=== PATIENT | female | born 1955 | race Caucasian/White ===

== ENCOUNTER 2019-12-10 18:53 | Inpatient (IN) | payer BC, OTHER ==
[~2019-12-10] VITALS: Ht 170.2 cm; Wt 92.5 kg
--- NOTE | ~2019-12-10 | O ---
[facility] [place] [address] OPERATIVE REPORT Name: BRENDEN NICK Room #: 439-P ADM IN M.R.#: [id number] Admission: 12/10/19 Attend Phys: Pasha Guy MD Discharge: Date of : 59 Report #: [id number] THIS REPORT FOR: cc: ANGELIC - No family physician/PCP ANGELIC - No family physician/PCP Natanael Cardozo DPM ~ CC: ANGELIC physician/PCP Pasha Guy DATE OF SERVICE: 12/12/2019 PREOPERATIVE DIAGNOSIS: Left diabetic foot ulcer with osteomyelitis. POSTOPERATIVE DIAGNOSIS: Left diabetic foot ulcer with osteomyelitis. PROCEDURE: Left partial first ray resection. ANESTHESIA: General with a local block consisting of 15 mL of 0.5% Marcaine. TOURNIQUET: Thigh. DESCRIPTION OF PROCEDURE: The patient was transported to operating room and placed on the operating table in supine position. General anesthesia was administered. The left lower extremity was prepped and draped in the usual sterile manner. Attention was directed to the left foot after a local block was given and a racquet-type incision was made excising off first the hallux completely and dissecting free the first metatarsal, which was noted to have a significant loss of bone in the distal medial aspect. It was unusual to see not much purulence in the area, but significant scar tissue and some inflammatory tissue in the area. The sesamoid apparatus was also present in the first metatarsal and right adjacent to the wound sites, we removed the sesamoid apparatus as per usual and with any tissue that was compromised or nonviable. The wound was then copiously flushed with normal saline and Bacitracin and the wound tissue sent out before that was sent for aerobic, anaerobic, and fungal. I remodeled the first metatarsal nicely and then we closed the wound with 2-0 nylon using simple suture and horizontal suture technique. The wound was then dressed with Xeroform, fluffs, Kerlix and outer Ross bandage. The patient tolerated the procedure well and left the operating room with vital signs intact and vascular status intact. [address] [address] OPERATIVE REPORT Name: SALOMON ELIZABETHBRENDEN Room #: 439-P ADM IN M.R.#: [id number] Admission: 12/10/19 Attend Phys: Pasha Guy MD Discharge: Date of : 59 Report #: [id number] The 95% of the wound was healed; but still some slight opening was present. The patient will need to be protected quite a bit, with a watch closely to make sure the infection is not tracking more proximal or more medial. By: 1319 1352 Natanael Cardozo, RACHAEL /nt
[2019-12-10 18:58] VITALS: BP 174/85
[2019-12-10 19:35] LABS: ABSOLUTE NEUTROPHILS 11.7 thou/uL (1.4-8.2); BASOPHILS 0.4 % (0.0-2.0); EOSINOPHILS 0.2 % (0.0-3.0); HEMATOCRIT 39.7 % (37.0-47.0); HEMOGLOBIN 12.9 gm/dL (12.0-15.0); LYMPHOCYTES 10.4 % (24.0-44.0); MCH 27.5 pg (26.0-34.0); MCHC 32.6 g/dL (28.0-37.0); MCV 84.5 fL (80.0-100.0); MONOCYTES 5.3 % (1.0-8.0); PLATELET COUNT 379 thou/uL (150-400); POLYS 83.7 % (36.0-66.0); RBC 4.69 mil/uL (4.20-5.00)
[2019-12-10 19:43] LABS: CALCIUM 8.6 mg/dL (8.5-10.1); POTASSIUM 3.8 mmol/L (3.5-5.1)
[2019-12-10 20:54] VITALS: BP 174/85
--- NOTE | 2019-12-10 20:58 | NUR ---
ATTEMPTED TO CALL REPORT TO RECEIVING NURSE, STATED SHE HAS A BUNCH OF PAPERS TO LOOK THROUGH TO BE ABLE TO READ THE HAND OFF TOOL AND WILL HAVE TO CALL ME BACK
--- NOTE | 2019-12-10 21:04 | NUR ---
INPATIENT NURSE CALLED BACK TO TELL ME TO FAX THE HAND OFF TOOL TO [facility] BECAUSE [facility] [employer] IS BUSY. NURSE REFUSES TO TAKE ANY INFORMATION ABOUT PT UNTIL SHE HAS THE HAND OFF TOOL IN FRONT OF HER
--- NOTE | 2019-12-10 21:31 | NUR ---
JEREMY GAVE INSTRUCTION TO HOLD OFF ON SENDING PATIENT TO THE FLOOR D/T PENDING INSURANCE ISSUES, PT MAY WANT TO TRANSFER TO DIFFERENT HOSPITAL
[2019-12-10 22:15] VITALS: BP 147/82
--- NOTE | 2019-12-11 03:08 | NUR ---
ARRIVED ON UNIT AT 2215 VIA CART FROM ED ACCOMPAINED BY ED PERSONEL. PATIENT ALERT AND ORIENTED X4. PATIENT ANXIOUS ABOUT BEING HERE BECAUSE OF INSURANCE COVERAGE. PATIENT C/O PAIN OF 1 IN L FOOT WOUND. PICTURES TAKEN AND PUT IN CHART. PATIENT NOT A FALL RISK. IV IN R HAND PATENT WITH FLUIDS INFUSING.SLEPT OFF AND ON DURING NIGHT.
[2019-12-11 07:59] LABS: HEMATOCRIT 36.4 % (37.0-47.0); HEMOGLOBIN 11.9 gm/dL (12.0-15.0); MCH 27.6 pg (26.0-34.0); MCHC 32.7 g/dL (28.0-37.0); MCV 84.4 fL (80.0-100.0); RBC 4.31 mil/uL (4.20-5.00); RDW 13.9 % (10.5-14.5); WBC 9.4 thou/uL (4.0-11.0)
[2019-12-11 08:08] LABS: CALCIUM 8.4 mg/dL (8.5-10.1); CREATININE 0.8 mg/dL (0.6-1.0); POTASSIUM 3.8 mmol/L (3.5-5.1)
--- NOTE | 2019-12-11 08:26 | NUR ---
PER DOCUMENTATION IN H &P PT IS WORRIED HER INSURANCE IS OUT OF NETWORK WITH THIS HOSPITAL. CM CONTACTED MELE AT [facility] AT 0825 AND LEFT A VOICEMAIL REQUESTING HER TO CALL BACK ELMIRA IN REGARDS TO IF PATIENT IS IN NETWORK OR OUT OF NETWORK.
[2019-12-11 08:31] VITALS: BP 104/61
--- NOTE | 2019-12-11 10:04 | NUR ---
ASSESSMENT: CM REVIEWED CHART AND SPOKE WITH PATIENT. PT WAS ADMITTED DUE TO HAVING A WOUND ON HER LEFT FOOT THAT IS POSITIVE FOR OSTEO. PT REPORTS THAT SHE HAS NO PAST HX OF SEEING A MEDICAL DOCTOR SINCE AND SHE HAS JUST PRAYED FOR HEALING. PT REPORTS THAT SHE HAS NO PCP. PT REPORTS SHE LIVES IN A HOUSE WITH HER AND HAS BEEN FULLY INDEPENDENT WITH ADLS AND AMBULATION. PT HAS NO DME OR THE NEED FOR IT. PT REPORTS SHE HAS STEPS AT HOME BUT HAS BEEN INDEPENDENT HER WHOLE LIFE. PT IS CONCERNED HER INSURANCE IS OUT OF NETWORK AND WANTS TO TRANSFER TO ANOTHER HOSPITAL IF THIS IS THE CASE. CM REASSURED HER THAT CM HAS NOT BEEN INFORMED OF THAT AT THIS TIME AND VM HAS BEEN LEFT WITH OUR PRE-CERT DEPT IN ATTEMPTS TO VERIFY AND CM WILL NOTIFY HER SOON WE KNOW. CM ATTEMPTED TO CALL [employer] [place] BUT [facility] SO AWAITING CALL BACK FROM PRE-CERT AT THIS TIME. CM ASKED IF PATIENT NEEDED A LIST OF PCP AND SHE STATED SHE COULD CALL THE NUMBER ON HER CARD FOR IN-NETWORK PROVIDERS. CM ALSO PROVIDED HER WITH A LIST OF [facility] PCP. CM WILL CONTINUE TO FOLLOW TO ASSIST NEEDED.
--- NOTE | 2019-12-11 11:14 | NUR ---
PT A&OX4 VSS, IV PATENT WITH FLUIDS RUNNING/ANTIBIOTICS, CALLS APPROPRIATE WHEN HELP NEEDED, CALL LIGHT IN REACH, WILL CONTINUE TO MONITOR.
[2019-12-11 17:15] VITALS: BP 120/56
[2019-12-11 20:45] VITALS: BP 139/87
--- NOTE | 2019-12-12 03:47 | NUR ---
PT DENOED PAIN SO FAR.DR ANDRADE HERE TO SEE PATIENT.PT'S FOOT SWABBED AND SENT DOWN TO THE LAB.PT STATED THAT HER IV WAS HURTING WHENEVER SHE MOVES HER ARM,NEW IV STARTED TO HER RFA.PT CONT ON HER IVF AND IV ABX.PT SLEEPING ON HER BED AT THIS TIME.CALL LIGHT WITHIN REACH.
[2019-12-12 05:30] VITALS: BP 122/63
[2019-12-12 08:22] VITALS: BP 122/62
--- NOTE | 2019-12-12 11:02 | HC ---
[facility] [place] [address] CONSULTATION Name: BRENDEN NICK Room #: 439-P ADM IN M.R.#: [id number] Admission: 12/10/19 Attend Phys: Pasha Guy MD Discharge: Date of : 59 Report #: [id number] THIS REPORT FOR: cc: ANGELIC - No family physician/PCP ANGELIC - No family physician/PCP Julio César Jurado MD ~ CC: [facility]/PCP Pasha Guy DATE OF SERVICE: 12/11/2019 WOUND CARE CONSULTATION PERSONAL PHYSICIAN: None. CHIEF COMPLAINT: Left toe ulcer with suspected osteomyelitis. HISTORY OF PRESENT ILLNESS: This is a 64-year-old white female with no previous medical history who came to the Emergency Department for complaints of possible infection in her left great toe secondary to increasing pain, swelling and drainage over the past several days. The patient states she had an ulcer in the left great toe for several months. 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 The patient denies fevers or chills. The patient states that she has minimal pain. The patient denies any other associated concerns at this time. The patient states she has never had any other wounds that she could not heal on her own. PAST MEDICAL HISTORY: Significant for possibly new onset diabetes after she was found to have a blood glucose in the Emergency Department of 203. The patient otherwise has no other significant past medical history. CURRENT MEDICATIONS: None. DRUG ALLERGIES: None. SOCIAL HISTORY: The patient does not smoke or drink alcohol. FAMILY HISTORY: Not pertinent to current medical condition. REVIEW OF SYSTEMS: CONSTITUTIONAL: The patient denies fevers or chills. NEUROLOGIC: The patient denies numbness, tingling or weakness in arms or legs. EYES: No complaints. ENT: No complaints. CARDIAC: The patient denies chest pain, palpitations, peripheral edema. [facility] [address] [place] [address] CONSULTATION Name: BRENDEN NICK Room #: 439-P [facility].#: [id number] Admission: 12/10/19 Attend Phys: Pasha Guy MD Discharge: Date of : 59 Report #: [id number] RESPIRATORY: The patient denies shortness of breath, cough or wheezes. GASTROINTESTINAL: The patient denies nausea, vomiting or abdominal pain. GENITOURINARY: The patient denies urgency or frequency. MUSCULOSKELETAL: No complaints. SKIN: There is a chronic ulcer on the left great first metatarsal head. PHYSICAL EXAMINATION: VITAL SIGNS: Temperature 36.6, pulse 63, respirations 16, BP 104/61. GENERAL: This is an alert and oriented x 3, pleasant white female who is in absolutely no distress. HEENT: Normocephalic, atraumatic. Mucous membranes are moist. Pupils are round. Sclerae are white. NECK: Without JVD. LUNGS: Clear. HEART: Regular. ABDOMEN: Soft, nontender. EXTREMITIES: The patient moves all extremities without difficulty. Evaluation of left lower extremity reveals a 2+ dorsalis pedis pulse, trace edema and on the plantar aspect of the left foot over the area of the first metatarsal head is a chronic ulcer with palpable bone at the base, the wound is a mix of approximately 90% granulation tissue and 10% yellow slough. Periwound is mildly macerated. There is no significant undermining or tunneling. Moderate amount of serosanguineous drainage is noted without significant odor. No other associated ulcerations are noted. Right foot is without open ulcerations. NEUROLOGIC: Cranial nerves 2-12 are grossly intact. Motor and sensory are grossly intact. LABORATORY VALUES: White count 9.4, hemoglobin 11.9. Sed rate 65. BUN 10, creatinine 0.8. C-reactive protein 213.12. IMAGING: X-ray of the left foot shows erosive change of the first metatarsal head consistent with osteomyelitis. WOUND CARE COURSE: I spoke at length with the patient and stated at this time an MRI has been ordered to evaluate for osteomyelitis and with palpation of the bone and the x-ray findings, I am sure this is consistent with first metatarsal head osteomyelitis. If that is the case, there is a chance that the patient will require a first ray amputation. Podiatry, Dr. Cardozo has been consulted, but has not seen the patient yet. The patient is very upset about the fact of a possible amputation; however, we had a long talk and explained about possible orthotics and the patient was somewhat more calm after that. IMPRESSION: 1. Diabetic ulcer, Schafer grade 3. 2. Newly diagnosed diabetes. 3. Cellulitis, left foot. [address] [address] CONSULTATION Name: BRENDEN NICK Room #: 439-P ADM IN M.R.#: [id number] Admission: 12/10/19 Attend Phys: Pasha Guy MD Discharge: Date of : 59 Report #: [id number] 4. Concern for underlying osteomyelitis of the left first metatarsal head. PLAN: On the ulcer, we will start Aquacel Ag, cover with ABD, Kerlix daily and p.r.n. We will encourage the patient to elevate her leg as much as possible for mild swelling. Infectious Disease has started the patient on IV antibiotics, which we will continue at this time. MRI is pending to evaluate for underlying osteomyelitis. Podiatry consult is also pending at this time. Diabetes is being managed by the hospitalist. We will continue all other current medications. We will continue to follow the patient. I appreciate ability to consult. <ELECTRONICALLY SIGNED> By: Julio César Jurado MD 12/12/19 1102 1558 [id number] Julio César Jurado MD /nt
--- NOTE | 2019-12-12 12:56 | NUR ---
ON-GOING ASSESSMENT: PT HAD MRI OF THE FOOT. WOUND CARE IS SEEING PATIENT AND PODIATRY CONSULTED ABOUT POSSIBLE NEED FOR SURGERY TOMORROW DUE TO OSTEO. CM WILL CONTINUE TO FOLLOW TO ASSIST NEEDED.
--- NOTE | 2019-12-12 13:17 | NUR ---
Nutrition: Assessed d/t wound. Pt w/ L foot wound w/ osteo (L first metatarsal head); will need surgical intervention. No known PMH, EMR states pt has not been to a doctor in 64 yrs, since . There was suspicion of new onset diabetes d/t elevated BG on admit, but A1c results show only 6%, thus consistent with prediabetes. RD spent 15 mins in diet education on important nutrients to prioritize w/ wound healing including protein emphasis, vitamin C and zinc. Pt did detailed food recall; is a very healthy eater. Lots of raw/ green vegetables, salads, fish, eggs, italian yogurt, berries, and dairy. BG could have been elevated related to presence of infection/inflammation, stress, and lack of recent exercise d/t location of wound. Normally very active w/ yoga, treadmill, biking. Very low nutrition risk s/p education.
[2019-12-12 16:28] VITALS: BP 139/73
--- NOTE | 2019-12-12 16:45 | NUR ---
Assumed care of pt. at 0700. She is anxious and asks many questions about procedures and treatments. She is calm and cooperative. Pt.'s wound was redressed and jose rafaelell was added. Pt. received consult from the podietrist and is scheduled to have surgery tommorow on the wound. She was tested for COVID-19 during this shift.
[2019-12-12 19:28] VITALS: BP 148/86
--- NOTE | 2019-12-13 01:38 | NUR ---
PT WAS IN A GOOD MOOD AT THE START OF SHIFT BUT THE SHIFT PROGRESSED,SHE BECAME ANXIOUS ABOUT HER NEW DM AND SURGERY.EDUCATION AND EMOTIONAL SUPPORT GIVEN.THIS NURSE GAVE THE PT AN EDUCATIONAL DM FOLDER WITH IMPORTANT INFO ON HOW TO MANAGE AND LIVE WITH DM.PT WAS VERY APPRECIATVE AND LATER FELT BETTER ABOUT HER CONDITION.PT CONT ON IVF AND IV ABX ORDERED.DRSG TO HER L FOOT C/D/I.PT SLEEPING ON HER BED AT THIS TIME.CALL LIGHT WITHIN REACH.
[2019-12-13 04:12] VITALS: BP 139/84
[2019-12-13 08:14] VITALS: BP 148/73
--- NOTE | 2019-12-13 09:41 | NUR ---
ON-GOING ASSESSMENT: CM REVIEWED CHART AND SPOKE WITH PATIENT. PT IS TO HAVE PARTIAL FIRST RAY RESECTION TODAY. CM DISCUSSED THAT PATIENT IS CURRENTLY ON IV ANBX AND PENDING CULTURES WITH HAVE TO CHECK WITH ID IF SHE WILL BE ABLE TO TRANSITION OFF IV ANBX OR NOT. SHE STATES IF SHE NEEDS IV ANBX THEN SHE IS OPEN TO HH AND HAS NO PREFERENCE OF HH LONG IT IS IN NETWORK WITH HER INSURANCE. REFERRAL WAS SENT TO [facility]. PT STATES SHE IS ALSO WANTING TO CHECK IF DR. CAIN WHO IS TO DO HER SURGERY IS AN IN-NETWORK PROVIDER WITH HER INSURANCE. CM STATED SHE COULD CONTACT HER INSURANCE COMPANY WITH THE NUMBER ON HER CARD. CM ALSO REACHED OUT TO HER INSURANCE [phone] AND SPOKE WITH [employer] WHO REPORTS THAT DR. CANI HAS BEEN PART OF THE [facility] [place] NETWORK SO SHOULD BE IN NETWORK LONG HE DID NOT CHANGE CONTRACTS BUT STATES SHE DOES NOT HAVE LIVE UPDATES SO WOULD HAVE TO FULLY VERIFY BY CALLING [phone]. CM NOTIFIED PATIENT. CM WILL CONTINUE TO FOLLOW TO ASSIST NEEDED. PT IS SCHEDULED TO HAVE PARTIAL RAY RESECTION THIS AFTERNOON.
--- NOTE | 2019-12-13 11:20 | NUR ---
ASSUMED CARE AT 0700. PT IS ALERT AND ORIENTED. VSSA/RA. PLANNING FOR SURGERY TODAY. PT IS ANXIOUS, BUT NO OTHER COMPLAINTS. NPO. GI/ NML. PIV INFUSING. UAL. CALL LIGHT IN REACH. AT BEDSIDE. AROUND 1035, PT WAS TAKEN TO PREOP. CONITNUE TO MONITOR
--- NOTE | 2019-12-13 12:42 | H ---
[facility] [place] [address] HISTORY AND PHYSICAL Name: BRENDEN NICK Room #: 439-P ADM IN M.R.#: [id number] Admission: 12/10/19 Attend Phys: Pasha Guy MD Discharge: Date of : 59 Report #: [id number] THIS REPORT FOR: cc: ANGELIC - No family physician/PCP FAM - No family physician/PCP Natanael Cardozo DPM ~ CC: [facility] physician/PCP Pasha Guy DATE OF SERVICE: 12/10/2019 INTRODUCTION: This is a 64-year-old white female, diabetic, admitted to [facility] for a diabetic foot ulcer of the left foot. HISTORY OF PRESENT ILLNESS: This is a 64-year-old white female who was admitted to [facility] for a left diabetic foot ulcer. This started, she said, approximately a month ago with an abrasion-type injury. The patient also notes that she is a [employer] and does not believe in Western medicine. She has not seen a doctor ever until recently. She says that the wound is not painful, but she is concerned that she understands she may have an infection in her bone. PAST MEDICAL HISTORY: Noted for newly diagnosed diabetes. She has no other history of heart problems, lung problems, kidney problems, liver problems or bleeding disorders. ALLERGIES: No known drug allergies. MEDICATIONS: Vancomycin and Zosyn and Zofran. PREVIOUS SURGERIES: None. FAMILY HISTORY: Unremarkable. SOCIAL HISTORY: No history of alcohol, tobacco or drug use. PHYSICAL EXAMINATION: GENERAL: Upper extremity exam is already done by the ER physician. HEENT: PERRLA. NECK: Supple. HEART: Regular rate and rhythm. LUNGS: No respiratory distress. EXTREMITIES: Lower extremity exam shows she has palpable pulses, dorsalis pedis and posterior tibialis. She has neuropathy, distal foot. [facility] [address] [place] [address] HISTORY AND PHYSICAL Name: BRENDEN NICK Room #: 439-P ADM IN .R.#: [id number] Admission: 12/10/19 Attend Phys: Pasha Guy MD Discharge: Date of : 59 Report #: [id number] She has a wound about the size of a quarter in the plantar medial aspect that probes deep. She has a clinical deformity that is a bunion that is very significant with a cocked up toe. DIAGNOSTIC IMAGING: X-rays reveal possibility of osteomyelitis. An MRI confirmed the possibility of osteomyelitis as well. LABORATORY DATA: Her white blood cell count yesterday was 14.0, now is 9 today. CRP was above 200. ASSESSMENT AND PLAN: The patient has a diabetic foot ulcer with osteomyelitis, first metatarsophalangeal joint. Plan is for a partial first ray resection. I may have to stage it if it is tracked back further than we expect along the tendons. The patient and I discussed it. She is currently deciding whether she wants to go through it, and it looks like she will go through with it for tomorrow 11:45. She understands the possible complications such as chronic wound, loss of foot and some loss of balance. The patient is very nervous about the surgery. She wants to wear flip-flops and do other physical activities that she is afraid she will be able to do again. She also has a hard time accepting Western Medicine. <ELECTRONICALLY SIGNED> By: Natanael Cardozo DPM 12/13/19 1242 1744 [id number] Natanael Cardozo DPM /nt
--- NOTE | 2019-12-13 14:08 | NUR ---
ON-GOING ASSESSMENT: PT HAD PARTIAL FIRST RAY RESECTION TODAY. PT IS IN CAM BOOT AND TO BE NWB. CM SPOKE WITH PHYSICAL THERAPY WHO REPORTS PATIENT WILL LIKELY NEED A WALKER AT DISCHARGE BUT WILL NOT SEE HER UNTIL TOMORROW. PT WANTS TO MAKE SURE TO USE A DME COMPANY THAT IS IN NETWORK. CM REACHED OUT TO LIASON AT [employer] AND THEY ARE IN NETWORK AND CAN PROVIDE A WALKER. SHE REPORTS THAT PHYSICAL THERAPY CAN ISSUE PT A WALKER TOMORROW. CM NOTIFIED PHYSICAL THERAPIST THAT A WALKER MAY BE DISPENSED TO HER TOMORROW. IF PATIENT IS NEEDING HH AT DISCHARGE DR. THOMPSON HAS AGREED TO FOLLOW FOR HOME HEALTH ORDERS PATIENT HAS NO ESTABLISHED PCP. CM SENT REFERRAL TO [facility] AND THEY ARE ABLE TO DO ONE VISIT THEY STATE DUE TO PATIENT NEEDING TO ESTABLISH WITH A PCP. PT IS CURRENTLY ALSO ON IV ANBX AND CULTURES ARE STILL PENDING. WILL HAVE TO CONTINUE TO FOLLOW ID TO SEE IF ANBX CAN BE SWITCHED TO ORAL. CM WILL CONTINUE TO FOLLOW TO ASSIST NEEDED. IF PATIENT IS ABLE TO DISCHARGE OVER THE WEEKEND AND MEDICATIONS ARE CHANGED TO ORAL [facility] IF HOME HEALTH IS ORDERD: [phone] AND FAX D/C ORDERS AND SUMMARY TO THEIR FAX: [phone].
--- NOTE | 2019-12-13 14:16 | NUR ---
ON-GOING ASSESSMENT: CM REVIEWED CHART AND SPOKE WITH ATTENDING AND PT. PT HAD PARTIAL FIRST RAY RESECTION TODAY. PT WILL BE IN A CAM BOOT AND NWM. CM SPOKE WITH PHYSICAL THERAPY WHO STATES PATIENT WILL LIKELY NEED A WALKER AT DISCHARGE. PT REPORTS SHE WANTS A [employer] THAT IS IN NETWORK WITH HER INSURANCE. CM NOTIFIED LIASON AT [employer] WHO REPORTS THEY ACCEPT HER INSURANCE AND IF FOR ANY REASON PATIENT IS ABLE TO DISCHARGE OVER THE WEEKEND THEN PHYSICAL THERAPY CAN ISSUE HER A WALKER. CM NOTIFIED PHYSICAL THERAPIST. WE ARE STILL AWAITING CULTURES FOR PATIENT SHE IS CURRENTLY ON IV ANBX AND MAY NEED IV ANBX (OUTPT VS HH) AT DISCHARGE PENDING ID RECOMMENDATIONS. OUTPATIENT INFUSION MAY BE THE BEST OPTION FOR PATIENT IF SHE IS NEEDING IV ANBX SHE HAS NO ESTABLISHED PCP FOR HH AND [facility] HAS ONLY AGREED TO DO ONE VISIT UNTIL PCP CAN BE ARRANGED. (CM NOTIFIED [facility] DR. THOMPSON STATES IF NEEDED HE CAN FOLLOW FOR HH ORDERS BUT [facility] ONLY ABLE TO SEE PATIENT ONCE). CM SPOKE WITH ATTENDING WHO STATES PATIENT WILL LIKELY BE HERE OVER THE WEEKEND. CM WILL CONTINUE TO FOLLOW TO ASSIST NEEDED.
[2019-12-13 14:44] VITALS: BP 122/61
[2019-12-13 16:25] VITALS: BP 128/65
[2019-12-13 20:40] VITALS: BP 137/78
--- NOTE | 2019-12-14 03:47 | NUR ---
ASSUMED PT CARE AT 1900.PT RELUCTANT TO TAKING PAIN MED,WAS ENCOURAGED TO DO SO TO BE ON TOP OF THE PAIN.TYLENOL ADMINISTERED X2 SO FAR.PT NWB TO HER LLE,PT ABLE TO STAND FROM BED AND PIVOT TO THE BSC.PT CONT ON IVF AND IV ABX ORDERED.PT SLEEPING ON HER BED AT THIS TIME.DRSG TO HER LLE C/D/I.CALL LIGHT WITHIN REACH.
[2019-12-14 03:50] VITALS: BP 120/75
[2019-12-14 08:19] VITALS: BP 149/86
[2019-12-14 14:40] VITALS: BP 150/76
--- NOTE | 2019-12-14 18:22 | NUR ---
This RN agrees with the [employer] assessment
--- NOTE | 2019-12-14 18:28 | NUR ---
ASSUMED CARE OF PATIENT AT SHIFT CHANGE. ASSESSMENT CHARTED. MEDICATION GIVEN PER JUL. VSS. PATIENT C/O MILD PAIN ON L TOE. PRN PAIN MED GIVEN AND PROVIDED RELIEF. PATIENT UP TO BSC AND CHAIR X1 W PT AND THIS NURSE W PIVOTING. PATIENT HAD GOOD APPETITE THIS SHIFT AND VOIDED WELL. PATIENT VOICES NO OTHER CONCERNS AT THIS TIME. WILL CONTINUE TO MONITOR AND FOLLOW PLAN OF CARE
[2019-12-14 20:35] VITALS: BP 168/92
--- NOTE | 2019-12-15 02:13 | NUR ---
Care of patient assumed at 1915. Pleasant and cooperative. Dressing to foot intact. Medication compliant. Requesting APAP every four hours to stay on top of pain. Patient insists that a blood draw was supposed to be done to make sure Vanco levels were not excessive. No lab ordered as such. Vanco and Zosyn administered as ordered. BSC emptied several times.
[2019-12-15 04:45] VITALS: BP 148/73
[2019-12-15 07:40] VITALS: BP 147/78
--- NOTE | 2019-12-15 13:35 | NUR ---
Assumed care of pt. at 0700. Pt. is awake, alert, and happy. Pt. is curious about discharge. Pt. ambulates short distances w/ walker. Fall precautions in place.
[2019-12-15 15:57] VITALS: BP 157/83
[2019-12-15 21:43] VITALS: BP 167/83
--- NOTE | 2019-12-16 02:25 | NUR ---
ASSUMED PT CARE AT APPROX 1900.PT AXOX4.DRSG TO HER L FOOT C/D/I.PT UP TO THE BSC VOIDING AEQUATELY.PAIN MANAGE WITH TYLENOL X1 SO FAR.PT CONT ON IVF AND IV ABX ORDERED.PT PROGRESSING WELL TOWARDS DC GOALS.CALL LIGHT WITHIN REACH.
[2019-12-16 06:00] VITALS: BP 141/80
--- NOTE | 2019-12-16 10:09 | NUR ---
ASSUMED CARE AT 0700. PT IS ALERT AND ORIENTED. NO COMPLAINTS. NO PAIN. VSSA/RA. TOLERATING DIET. GI/ WNL. DRESSING TO LEFT FOOT C/D/I. PIV INFUSING. PT STEADY AND UAL. EDUCATED TO CALL IF NEEDS ARISE. CALL LIGHT IN REACH. WILL CONINUE TO MONITOR
[2019-12-16 10:10] VITALS: BP 155/86
[2019-12-16] MEDS ORDERED: GLUCOSE TEST S1 EACH TRANSDERM (11:22)
[2019-12-16] MEDS ORDERED: glucometer (11:22)
[2019-12-16] MEDS ORDERED: LANCET 30G-GLU1 EACH TRANSDERM (11:22)
[2019-12-16] MEDS ORDERED: ZESTRIL5 MG PO (11:23)
--- NOTE | 2019-12-16 16:31 | NUR ---
on-going assessment: CM REVIEWED CHART. CULTURES ARE STILL PENDING AND WAITING ON RECS FROM ID. CM CONTACTED [facility] TO CLARIFY WHY THEY ONLY AGREED TO ONE VISIT FOR HOME HEALTH IF WE HAVE A PHYSICIAN WILLING TO FOLLOW FOR HH. (DR. ERIKA ANDRADE OR ARTIE THOMPSON AGREED TO FOLLOW FOR DURATION OF HH IF NEEDED). THEY STATED THAT IF THEY AGREE TO FOLLOW THEN THEY CAN DO MORE THEN ONE VISIT. WILL AWAIT ID RECS WHETHER PATIENT WILL DO OUTPATIENT INFUSION VS HOME WITH HH AND IV ANBX. CM WILL CONTINUE TO FOLLOW TO ASSIST.
[2019-12-16 16:48] VITALS: BP 166/91
--- NOTE | 2019-12-16 19:32 | NUR ---
VAT CONSULTED FOR A PICC FOR HOME IV ABX. A 4FRSLPICC PLACED LUABASILIC WITH THE TIP IN GOOD POSITION FOR USE. PLEASE SEE NI FOR DETAILS
[2019-12-16 21:05] VITALS: BP 152/73
--- NOTE | 2019-12-17 01:17 | NUR ---
PT DENIED PAIN SO FAR.PT WAS IN A GOOD MOOD BUT A LITTLE DISAPPOINTED THAT SHE DIDN'T GET TO GO HOME.SINGLE LUMEN PICC IN PLACE.PT'S L ARM RED FROM IV INFILTRATION,WARM COMPRESS TO THE AREA.PT CONT ON IVF AND IV ABX ORDERED.DRSG TO HER L FOOT C/DI.PT SLEEPING ON HER BED AT THIS TIME.CALL LIGHT WITHIN REACH.
[2019-12-17 09:26] VITALS: BP 144/71
--- NOTE | 2019-12-17 11:10 | NUR ---
PT IS A&OX4, VSS, UP AD ABELARDO. PT HAS BEEN EDUCATED AND AGREES TO TAKE NEW BP MEDS APPROPRIATELY, PICC LINE PATENT WITH IV FLUIDS RUNNING. WAITING TO FIND OUT WHAT ANTIBIOTIC PT WILL DISCHARGE HOME WITH, WILL CONTINUE TO MONITOR.
--- NOTE | 2019-12-17 13:54 | NUR ---
on-going assessment: CM REVIEWED CHART. WAITING ON SENSITIVTY AND ID RECS FOR POSSIBLE HOME IV ANBX WITH HH. [facility] HAS AGREED TO SEE PT FOR DURATION OF HH VISITS ORDERED BUT ARE NOT ABLE TO COME DAILY BUT CAN COME 2-3X/WEEK. [facility] HAS AGREED TO DO HOME IV INFUSION IF NEEDED AND CAN PROVIDE TEACHING TO PATIENT AND HER FOR HOME IV INFUSION ONCE EVERYTHING IS FINALIZED. THERE IS A POSSIBLE PLAN OF DISCHARGING HOME ON CEFAZOLIN. CM REQUESTED [facility] TO [facility] PATIENT WOULD NEED THIS (DEPENDING ON DOSE AND FREQUENCY IT WOULD COST ANYWHERE FROM 165-195/WEEK). PT STATES SHE CAN AFFORD THIS. CM WAITING ON FINAL RECOMMENDATIONS TO MAKE SURE PRICING IS ACCURATE. [facility] REQUEST PATIENT WOULD GET HER FIRST DOSE WHILE IN THE HOSPITAL. THEN DEPENDING ON THE FREQUENCY WOULD NEED TIME TO DO EDUCATION WITH PATIENT AND ORDER DOSE PRIOR TO HER GOING HOME. CM WILL CONTINUE TO FOLLOW TO ASSIST NEEDED.
[2019-12-17 17:44] VITALS: BP 162/84
--- NOTE | 2019-12-17 18:06 | PATH ---
[facility] [address] [place] [address] PATHOLOGY RPT PROCEDURE Name: BRENDEN URIOSTEGUI Room #: 439-P ADM IN M.R.#: [id number] Admission: 12/10/19 Date of : 59 Discharge: Report #: [id number] Path Case #: [id number] [facility] Accession Number: [id number] . 01 Material submitted: . toe - LEFT FIRST RAY. Modifiers: left, first . 01 Clinical history: . Osteomyelitis, sepsis, new onset diabetes . 02 Diagnosis: Toe, left first ray, amputation: - Bone showing marked acute osteomyelitis along with osteonecrosis. - Separate fragment of bone received within the container showing acute osteomyelitis. (IUV:pit 12/17/2019) QTP 12/17/2019 1433 Local . 02 Electronically signed: . Mona Chao MD, Pathologist NPI- [id number] . 01 Gross description: . The specimen is received in formalin, labeled "Brenden Uriostegui, left first ray". Received is an amputated digit measuring 6.3 x 3.4 x 3.3 cm in greatest dimensions. The bone margin is smooth and concave in appearance, consistent with disarticulation. The bone and soft tissue margins are inked black. The nail is present displaying a pale hernández and slightly thickened appearance. The epidermal surface is pale hernández and grossly unremarkable. A full-thickness longitudinal cross-section is submitted from proximal to distal aspects in cassettes A1 through A3, following decalcification. . Also received within the specimen container is an additional segment of bone, consistent with metatarsal, displaying one blunt transected margin and one smooth, convex margin measuring 3.7 x 2.2 x 2.0 cm in greatest dimensions. The transected margin is inked black. A full thickness cross-section is submitted from transected to disarticulated aspects in cassettes A4 and A5, following decalcification. (CAA; 12/16/2019) QA/QAC 12/16/2019 1032 Local . 02 Pathologist provided ICD-10: M86.172, M87.9 . 02 CPT . 137585, [id number] [place] [address] PATHOLOGY RPT PROCEDURE Name: BRENDEN URIOSTEGUI Room #: 439-P ADM IN M.R.#: [id number] Admission: 12/10/19 Date of : 59 Discharge: Report #: [id number] Path Case #: [id number] Specimen Comment: A courtesy copy of this report has been sent to [phone], [phone] Specimen Comment: [phone] Specimen Comment: Report sent to / DR MCLAUGHLIN Performed at: [address], [place] [id number] MD Mario Felton MD Phone: [phone] Performed at: [address] [id number] MD Mona Chao MD Phone: [phone]
[2019-12-17 22:01] VITALS: BP 151/79
--- NOTE | 2019-12-18 02:53 | NUR ---
PT DENIED PAIN SO FAR.DRSG TO HER L FOOT C/D/I.DR ANDRADE HERE TO SEE PT AT , STILL WAITING ON THE SENSITIVITY OF THE [facility] TO KNOW WHICH ABX TO SEND PT HOME WITH.PT STILL DISAPPOINTED ABOUT NOT LEAVING BUT SHE IS HOPEFUL THAT SHE WILL DC LATER TODAY.IVF STILL INFUSING VIA L UPPERARM PICC.DEMARCUS ARCE'D.PT SLEEPING AT THIS TIME.CALL LIGHT WITHIN REACH.
[2019-12-18 03:29] VITALS: BP 142/75
[2019-12-18 08:10] VITALS: BP 147/75
[2019-12-18 14:22] VITALS: BP 147/75
[2019-12-18] MEDS ORDERED: CEFAZOLIN2 GM/1001 IVPB (14:34)
--- NOTE | 2019-12-18 15:30 | NUR ---
ON-GOING ASSESSMENT: CM REVIEWED CHART AND SPOKE WITH ATTENDING. SENSITIVITY IS STILL PENDING BUT PER DR ANDRADE PT CAN DISCHARGE ON CEFAZOLIN 2GM Q8 HOURS. CM NOTIFIED [facility] THE [facility]ION [facility]. PT IS TO GET HER FIRST DOZE IN THE HOSPITAL TO MAKE SURE SHE HAS NO REACTION. PT THEN WOULD BE DUE FOR NEXT DOSE AT 10PM. [facility] REQUIRES 4-6 HOURS TO MIX AND DELIVER MEDICATION AND WILL NOT BE ABLE TO DO THIS FOR THIS EVENING THEY NEED EVERYTHING FINALIZED BEFORE THEN CAN ARRANGE IT. CM SPOKE WITH ATTENDING WHO PLACED ORDER FOR HOME IV ANBX AND CM FAXED INFORMATION TO [facility] AND CONFIRMED THEY RECEIVED IT. OBED VALERO AT [facility] IS COORDINATING WITH PATIENT AND HER TO ARRANGE A TEACHING IN THE AM FOR PATIENT TO LIKELY DISCHARGE IN THE AFTERNOON BEFORE 2PM DOSE. CM NOTIFIED [facility] OF THE PLAN TO DISCHARGE LATE MORNING IF POSSIBLE AND COORDINATE COMING FOR HH POSSIBLY TOMORROW AFTERNOON FOR SECOND DOSE IF NEEDED. BEDSIDE RN AWARE OF PLAN. CM WILL CONTINUE TO FOLLOW TO ASSIST NEEDED.
[2019-12-18 15:33] VITALS: BP 147/75
[2019-12-18 16:20] VITALS: BP 145/76
--- NOTE | 2019-12-18 17:57 | NUR ---
PT IS AOX4, VSS, NO C/O PAIN. PT CALLS APPROPRIATELY NO S/S OF DISTRESS. PT LEFT FOOT ELEVATED ON PILLOW, DRESSING CDI. WILL CONTINUE TO MONITOR.
[2019-12-18 19:30] VITALS: BP 139/80
--- NOTE | 2019-12-19 00:03 | NUR ---
ASSUMED PT CARE AT 1900. PT IS A&OX4. SURGICAL DRESSING D/C/I. ANTIBIOTICS INFUSING PER ORDER. NO C/O PAIN. PLANS TO LEAVE IN THE AM, WILL CONTINUE TO MONITOR.
[2019-12-19 03:21] VITALS: BP 125/71
[2019-12-19 07:25] VITALS: BP 134/83
--- NOTE | 2019-12-19 08:38 | NUR ---
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 Pt is s/p partial first ray resection on L foot on 12/12 for L foot osteomyelitis. Will go home w/ outpatient IV antibiotics. Continues on a regular diet, with minimal new meal trends to review. Pt had zero nutrition concerns at RD visit last week, eating 70-90% of most meals. Is ordering her own personalized meals. No meal records since 12/14. No BG checks since admit, A1c was 6%, consistent with prediabetes. Past protein/prediabetes education already completed by RD. No new nutrition concerns prior to discharge. Remains low nutrition risk.
[2019-12-19 09:58] VITALS: BP 147/75
--- NOTE | 2019-12-19 12:01 | NUR ---
ON-GOING ASSESSMENT: CM REVIEWED CHART. PT NEEDS IV ANBX HOME INFUSION TID. [facility] WAS CONTACTED FOR THE PAST FEW DAYS WAITING ON FINAL RECS. FINAL RECS WERE RECEIVED YESTERDAY AFTERNOON AND CM NOTIFIED [facility]. THEY STATED SINCE IV ANBZ IS TID AND ONE DOSE IS DUE AT 1000PM THEY NEEDED 6 HOURS ADVANCED TO ORDER/DELIVER MEDICATION WHICH COULD NOT BE DONE YESTERDAY EVENING FOR 10PM DOSE OF 6AM DOSE THAT WOULD BE DUE THIS AM. [facility] CAME TO DO HOME IV INFUSION EDUCATION WITH PATIENT AND HER THIS AM AT 1030. PT AND ARE COMFORTABLE WITH HOME IV INFUSION. CM NOTIFIED [facility] OF DISCHARE TODAY. [facility] NOTIFIED [facility] AND BUSINESS OPERATIONS COORDINATOR IS FAXING DISCHARGE INFORMATION. [facility] REPORTS THEY DO NOT NEED ANYTHING FURTHER FROM THEY RECEIVED IT YESTERDAY. PT NATHANAELAUREA HAS WALKER IN PATIENTS ROOM THAT WAS DELIVERED BY PROVIDER PLUS PREVIOUSLY. NO FURTHER NEEDS PRIOR TO DISCHARGE.
--- NOTE | 2019-12-19 12:43 | NUR ---
Assumed care of pt. at 0700. Pt. is cooperative and happy that she will be going home today. Pt. had learning sessions with home health IV nurses and OT. IV team changed the dressing on her PICC line before discharge. Pt. left with all belongings and .
[2019-12-19 13:09] VITALS: BP 147/75
--- NOTE | 2019-12-19 13:28 | NUR ---
ON-GOING ASSESSMENT: CM REVIEWED CHART. PT WILL DISCHARGE HOME WITH [facility] AND [employer] [facility]. PT NEEDS IV ANBX HOME INFUSION THREE TIMES A DAY. [facility] WAS CONTACTED FOR THE PAST FEW DAYS WAITING ON FINAL RECS. PRICING WAS ALREADY DONE AND PT AGREEABLE WITH COST PREVIOUSLY MENTIONED IN PREVIOUS NOTES. FINAL RECS WERE RECEIVED YESTERDAY AFTERNOON AND CM NOTIFIED [facility]. THEY STATED SINCE IV ANBX IS TID AND ONE DOSE IS DUE AT 10PM [facility] NEEDS 6 HOURS ADVANCED NOTICE TO ORDER/DELIVER MEDICATION WHICH COULD NOT BE DONE YESTERDAY EVENING FOR 10PM DOSE OR 6AM DOSE THAT WOULD BE DUE THIS AM. [facility] CAME TO DO HOME IV INFUSION EDUCATION WITH PATIENT AND HER THIS AM AT 1030. PT AND ARE COMFORTABLE WITH HOME IV INFUSION. CM NOTIFIED [facility] OF DISCHARE TODAY AND THAT SHE IS GOING HOME WITH IV ANBX. [facility] NOTIFIED [facility] AND BUS OPERATOR IS FAXING DISCHARGE INFORMATION. [facility] REPORTS THEY DO NOT NEED ANYTHING FURTHER FROM THEY RECEIVED IT YESTERDAY. PT HELDER HAS WALKER IN PATIENTS ROOM THAT WAS DELIVERED BY PROVIDER PLUS PREVIOUSLY. PT HAS NO PCP BUT [facility] THAT DR. ERIKA ANDRADE OR DR. ARTIE THOMPSON HAVE AGREED TO FOLLOW PATIENT FOR HOME HEALTH ORDERS. CM MET WITH PATIENT THIS AM AND SHE HAS NO FURTHER QUESTIONS FOR CM AT THIS TIME.
--- NOTE | 2019-12-19 13:43 | NUR ---
FAXED DC ORDERS/SUMMARY SPOKE LOUISA IN INTAKE SHE RECEIVED ORDERS AND WILL NOTIFY PT TIME OF VISITS.
== END 2019-12-19 12:14 | disposition home health service (06) | DRG 854 ==
LOC: ER 18:53 → 4S 20:15 → EROBS 20:15 → 4S 22:07
PROVIDERS: Emergency Medicine; Nurse Practitioner Family; ADMIT Internal Medicine; ATTEND Internal Medicine
PROC: 0Y6N0Z9 Detachment at Left Foot, Partial 1st Ray, Open Approach (ICD-10-PCS; principal; 2019-12-12)
PROC: 02HV33Z Insertion of Infusion Device into Superior Vena Cava, Percutaneous Approach (ICD-10-PCS; 2019-12-16)
DX: A41.9 Sepsis, unspecified organism (principal); M86.8X8 Other osteomyelitis, other site; L03.116 Cellulitis of left lower limb; E11.69 Type 2 diabetes mellitus with other specified complication; E11.621 Type 2 diabetes mellitus with foot ulcer; Z83.3 Family history of diabetes mellitus; Z20.828 Contact with and (suspected) exposure to other viral communicable diseases; Z79.899 Other long term (current) drug therapy
CPT/HCPCS: 10195; 27000; 50010; 50101; 50386; 50951; 56525; 56526; 56527; 56528; 57091; 70005

== ENCOUNTER → 2019-12-26 | Outpatient (CLI) | payer BC, OTHER ==
[~2019-12-26] MED LIST: CEFAZOLIN2 GM/1001 IVPB; GLUCOSE TEST S1 EACH TRANSDERM; LANCET 30G-GLU1 EACH TRANSDERM; ZESTRIL5 MG PO; glucometer
== END ==
LOC: HYPER 08:51
PROVIDERS: ATTEND Emergency Medicine Emergency Medical Services
DX: T87.89 Other complications of amputation stump (principal); E11.621 Type 2 diabetes mellitus with foot ulcer; L97.522 Non-pressure chronic ulcer of other part of left foot with fat layer exposed; L03.116 Cellulitis of left lower limb; E11.69 Type 2 diabetes mellitus with other specified complication; M86.672 Other chronic osteomyelitis, left ankle and foot; E66.9 Obesity, unspecified; Z68.30 Body mass index [BMI] 30.0-30.9, adult; Z89.412 Acquired absence of left great toe; Y83.5 Amputation of limb(s) as the cause of abnormal reaction of the patient, or of later complication, without mention of misadventure at the time of the procedure

== ENCOUNTER → 2020-01-03 | Outpatient (CLI) | payer BC, OTHER | LOC: HYPER 08:54 | PROVIDERS: ATTEND Emergency Medicine | DX: T87.89 Other complications of amputation stump (principal); E11.621 Type 2 diabetes mellitus with foot ulcer; L97.522 Non-pressure chronic ulcer of other part of left foot with fat layer exposed; L03.116 Cellulitis of left lower limb; E11.69 Type 2 diabetes mellitus with other specified complication; M86.672 Other chronic osteomyelitis, left ankle and foot; Y83.5 Amputation of limb(s) as the cause of abnormal reaction of the patient, or of later complication, without mention of misadventure at the time of the procedure ==

== ENCOUNTER → 2020-01-10 | Outpatient (CLI) | payer BC, OTHER | LOC: HYPER 09:00 | PROVIDERS: ATTEND Emergency Medicine | DX: T87.89 Other complications of amputation stump (principal); E11.621 Type 2 diabetes mellitus with foot ulcer; L97.522 Non-pressure chronic ulcer of other part of left foot with fat layer exposed; L03.116 Cellulitis of left lower limb; E11.69 Type 2 diabetes mellitus with other specified complication; M86.672 Other chronic osteomyelitis, left ankle and foot; L84 Corns and callosities; Z89.412 Acquired absence of left great toe; Y83.5 Amputation of limb(s) as the cause of abnormal reaction of the patient, or of later complication, without mention of misadventure at the time of the procedure ==

== ENCOUNTER → 2020-01-17 | Outpatient (CLI) | payer BC, OTHER | LOC: HYPER 08:36 | PROVIDERS: ATTEND Emergency Medicine | DX: T81.89XD Other complications of procedures, not elsewhere classified, subsequent encounter (principal); E11.621 Type 2 diabetes mellitus with foot ulcer; L97.522 Non-pressure chronic ulcer of other part of left foot with fat layer exposed; L03.116 Cellulitis of left lower limb; E11.69 Type 2 diabetes mellitus with other specified complication; M86.672 Other chronic osteomyelitis, left ankle and foot; E66.9 Obesity, unspecified; Z89.412 Acquired absence of left great toe; Z68.30 Body mass index [BMI] 30.0-30.9, adult; Y83.8 Other surgical procedures as the cause of abnormal reaction of the patient, or of later complication, without mention of misadventure at the time of the procedure ==

== ENCOUNTER → 2020-01-24 | Outpatient (CLI) | payer BC, OTHER | LOC: HYPER 10:14 | PROVIDERS: ATTEND Emergency Medicine | DX: T87.89 Other complications of amputation stump (principal); E11.621 Type 2 diabetes mellitus with foot ulcer; L97.522 Non-pressure chronic ulcer of other part of left foot with fat layer exposed; L03.116 Cellulitis of left lower limb; E11.69 Type 2 diabetes mellitus with other specified complication; M86.672 Other chronic osteomyelitis, left ankle and foot; Y83.5 Amputation of limb(s) as the cause of abnormal reaction of the patient, or of later complication, without mention of misadventure at the time of the procedure ==

== ENCOUNTER → 2020-02-06 | Outpatient (CLI) | payer BC | LOC: HYPER 13:28 | PROVIDERS: ATTEND Emergency Medicine | DX: T87.89 Other complications of amputation stump (principal); E11.621 Type 2 diabetes mellitus with foot ulcer; L97.522 Non-pressure chronic ulcer of other part of left foot with fat layer exposed; L03.116 Cellulitis of left lower limb; E11.69 Type 2 diabetes mellitus with other specified complication; M86.672 Other chronic osteomyelitis, left ankle and foot; E66.9 Obesity, unspecified; Z68.30 Body mass index [BMI] 30.0-30.9, adult; Y83.5 Amputation of limb(s) as the cause of abnormal reaction of the patient, or of later complication, without mention of misadventure at the time of the procedure ==

== ENCOUNTER → 2020-02-20 | Outpatient (CLI) | payer BC | LOC: HYPER 09:49 | PROVIDERS: ATTEND Emergency Medicine | DX: T87.89 Other complications of amputation stump (principal); E11.621 Type 2 diabetes mellitus with foot ulcer; L97.522 Non-pressure chronic ulcer of other part of left foot with fat layer exposed; L03.116 Cellulitis of left lower limb; E11.69 Type 2 diabetes mellitus with other specified complication; M86.672 Other chronic osteomyelitis, left ankle and foot; E66.9 Obesity, unspecified; Z68.30 Body mass index [BMI] 30.0-30.9, adult; Y83.5 Amputation of limb(s) as the cause of abnormal reaction of the patient, or of later complication, without mention of misadventure at the time of the procedure ==

== ENCOUNTER → 2020-03-05 | Outpatient (CLI) | payer BC | LOC: HYPER 10:00 | PROVIDERS: ATTEND Emergency Medicine | DX: T87.89 Other complications of amputation stump (principal); E11.621 Type 2 diabetes mellitus with foot ulcer; L97.522 Non-pressure chronic ulcer of other part of left foot with fat layer exposed; L03.116 Cellulitis of left lower limb; E11.69 Type 2 diabetes mellitus with other specified complication; M86.672 Other chronic osteomyelitis, left ankle and foot; E66.9 Obesity, unspecified; Z68.30 Body mass index [BMI] 30.0-30.9, adult; Y83.5 Amputation of limb(s) as the cause of abnormal reaction of the patient, or of later complication, without mention of misadventure at the time of the procedure ==